=== PATIENT | male | born 1980 | race Caucasian/White ===

== ENCOUNTER 2020-10-17 15:32 | Inpatient (IN) | payer OTHER ==
[2020-10-17 16:25] VITALS: BMI 23.1
[2020-10-17] MEDS ORDERED: IBUPROFEN 400 MG TABLET (FP) PO PRN (17:55)
[2020-10-17] MEDS ORDERED: NICOTINE POLACRILEX 2 MG GUM BUC PRN (17:55)
[2020-10-17] MEDS ORDERED: MAGNESIUM CITRATE 300 ML BOTTLE PO PRN (17:55)
[2020-10-17] MEDS ORDERED: MENTHOL/PHENOL 1 EACH UD MM PRN (17:55)
[2020-10-17] MEDS ORDERED: MAGNESIUM HYDROX 2400MG/30ML ORAL SUSPENSION 30 ML CUP PO PRN (17:55)
[2020-10-17] MEDS ORDERED: METHADONE HCL 10 MG TABLET (FOR DETOX USE ONLY) PO ONE (17:57)
[2020-10-17] MEDS ORDERED: cloNIDine HCL 0.1 MG TABLET PO PRN (17:57)
[2020-10-17] MEDS ORDERED: TRIMETHOBENZAMIDE HCL 200MG/2ML INJ IM ONE (17:58)
[2020-10-17] MEDS: chlordiazePOXIDE HCL 25 MG CAPSULE PO SCH (22:19)
[2020-10-17] MEDS: MELATONIN 5 MG TABLETS PO SCH (22:19)
[2020-10-17] MEDS: THIAMINE HCL 100 MG TABLET (FP) PO SCH (22:19)
[2020-10-18] MEDS: chlordiazePOXIDE HCL 25 MG CAPSULE PO PRN ×2 (03:16→12:58)
[2020-10-18] MEDS: chlordiazePOXIDE HCL 25 MG CAPSULE PO SCH ×4 (05:40→22:15)
[2020-10-18] MEDS ORDERED: METHADONE HCL 5 MG TABLET (FOR DETOX USE ONLY) ONE (09:17)
[2020-10-18] MEDS ORDERED: METHADONE HCL 10 MG TABLET (FOR DETOX USE ONLY) ONE (09:18)
[2020-10-18] MEDS ORDERED: TRIMETHOBENZAMIDE HCL 200MG/2ML INJ IM PRN (09:55)
[2020-10-18] MEDS ORDERED: DICYCLOMINE HCL 10 MG CAPSULE PO ONE (09:56)
[2020-10-18] MEDS ORDERED: METHADONE (DETOX) 20 MG, METHADONE (DETOX) 5 MG PO ONE (10:00)
[2020-10-18] MEDS ORDERED: cloNIDine HCL 0.1 MG TABLET PO PRN (10:19)
[2020-10-18] MEDS: PRENATAL VITAMINS W/ FOLIC ACID TABLET (FP) PO SCH (10:32)
[2020-10-18 11:29] LABS: HEMATOCRIT 39.1 % (35.4-49); HEMOGLOBIN 13.3 GM/dL (11.7-16.9); MCH 32.8 pg (25.7-33.7); MCHC 34.1 g/dl (32.0-35.9); MEAN CELL VOLUME 96.1 fl (80-96); MEAN PLT VOLUME 7.5 fl (7.5-11.1); PLATELET COUNT 234 K/MM3 (134-434); RBC 4.07 M/mm3 (4.00-5.60); RDW 14.4 % (11.9-15.9); WHITE BLOOD COUNT 4.1 K/mm3 (4.0-10.0)
[2020-10-18 11:42] LABS: CALCIUM 9.2 mg/dL (8.5-10.1)
[2020-10-18 11:43] LABS: BLOOD UREA NITROGEN 13.8 mg/dL (7-18)
[2020-10-18 11:46] LABS: CREATININE 0.8 mg/dL (0.55-1.3)
[2020-10-18 11:47] LABS: BILIRUBIN,TOTAL 0.7 mg/dL (0.2-1); TOT PROT 7.4 g/dl (6.4-8.2)
[2020-10-18] MEDS: ONDANSETRON *ODT* 4 MG TABLET SL PRN (12:59)
[2020-10-18] MEDS: ACETAMINOPHEN 325 MG TABLET (FP) PO PRN ×2 (13:00→17:42)
[2020-10-18] MEDS: QUEtiapine FUMARATE 100 MG TABLET (FP) PO SCH (22:14)
[2020-10-18] MEDS: THIAMINE HCL 100 MG TABLET (FP) PO SCH (22:14)
[2020-10-18] MEDS: MELATONIN 5 MG TABLETS PO SCH (22:15)
[2020-10-19] MEDS: ACETAMINOPHEN 325 MG TABLET (FP) PO PRN ×3 (04:14→10:18)
[2020-10-19] MEDS: chlordiazePOXIDE HCL 25 MG CAPSULE PO SCH ×4 (05:48→22:19)
[2020-10-19] MEDS ORDERED: METHADONE HCL 10 MG TABLET (FOR DETOX USE ONLY) PO ONE (10:00)
[2020-10-19] MEDS: PRENATAL VITAMINS W/ FOLIC ACID TABLET (FP) PO SCH (10:15)
[2020-10-19] MEDS: QUEtiapine FUMARATE 100 MG TABLET (FP) PO SCH (22:18)
[2020-10-19] MEDS: THIAMINE HCL 100 MG TABLET (FP) PO SCH (22:18)
[2020-10-19] MEDS: MELATONIN 5 MG TABLETS PO SCH (22:18)
[2020-10-19] MEDS: hydrOXYzine PAMOATE 50 MG CAPSULE (FP) PO PRN (22:21)
[2020-10-20] MEDS ORDERED: chlordiazePOXIDE HCL 10 MG CAPSULE PO PRN
[2020-10-20] MEDS: ACETAMINOPHEN 325 MG TABLET (FP) PO PRN (03:08)
[2020-10-20] MEDS: METHOCARBAMOL 500 MG TABLET PO PRN (05:46)
[2020-10-20] MEDS: chlordiazePOXIDE HCL 10 MG CAPSULE PO SCH ×4 (05:46→22:17)
[2020-10-20] MEDS ORDERED: METHADONE HCL 5 MG TABLET (FOR DETOX USE ONLY) ONE (09:18)
[2020-10-20] MEDS ORDERED: METHADONE HCL 10 MG TABLET (FOR DETOX USE ONLY) ONE (09:19)
[2020-10-20] MEDS ORDERED: METHADONE (DETOX) 10 MG, METHADONE (DETOX) 5 MG PO ONE (10:00)
[2020-10-20 10:08] LABS: SARS-CoV-2 NAA Not Detected (Not Detected)
[2020-10-20] MEDS: MAG HYDROX/AL HYDROX/SIMETH 30 ML UNIT-DOSE CUP PO PRN ×2 (10:16→22:18)
[2020-10-20] MEDS: PRENATAL VITAMINS W/ FOLIC ACID TABLET (FP) PO SCH (10:17)
[2020-10-20] MEDS: hydrOXYzine PAMOATE 50 MG CAPSULE (FP) PO PRN (13:42)
[2020-10-20] MEDS: MELATONIN 5 MG TABLETS PO SCH (22:17)
[2020-10-20] MEDS: QUEtiapine FUMARATE 100 MG TABLET (FP) PO SCH (22:17)
[2020-10-20] MEDS: THIAMINE HCL 100 MG TABLET (FP) PO SCH (22:17)
[2020-10-21] MEDS: MAG HYDROX/AL HYDROX/SIMETH 30 ML UNIT-DOSE CUP PO PRN ×2 (04:04→22:23)
[2020-10-21] MEDS: chlordiazePOXIDE HCL 10 MG CAPSULE PO SCH ×2 (06:20→17:57)
[2020-10-21] MEDS: BISMUTH SUBSALICYLATE 524 MG/30 ML UD PO PRN ×2 (07:28→12:37)
[2020-10-21] MEDS ORDERED: METHADONE HCL 10 MG TABLET (FOR DETOX USE ONLY) PO ONE (10:00)
[2020-10-21] MEDS: hydrOXYzine PAMOATE 50 MG CAPSULE (FP) PO PRN ×3 (10:10→22:02)
[2020-10-21] MEDS: PRENATAL VITAMINS W/ FOLIC ACID TABLET (FP) PO SCH (10:11)
[2020-10-21] MEDS: ACETAMINOPHEN 325 MG TABLET (FP) PO PRN (14:20)
[2020-10-21] MEDS: METHOCARBAMOL 500 MG TABLET PO PRN ×2 (14:20→22:02)
[2020-10-21] MEDS: THIAMINE HCL 100 MG TABLET (FP) PO SCH (22:02)
[2020-10-21] MEDS: QUEtiapine FUMARATE 100 MG TABLET (FP) PO SCH (22:02)
[2020-10-21] MEDS: MELATONIN 5 MG TABLETS PO SCH (22:02)
[2020-10-22] MEDS: BISMUTH SUBSALICYLATE 524 MG/30 ML UD PO PRN (02:04)
[2020-10-22] MEDS ORDERED: chlordiazePOXIDE HCL 10 MG CAPSULE PO ONE (05:00)
[2020-10-22] MEDS ORDERED: METHADONE HCL 5 MG TABLET (FOR DETOX USE ONLY) PO ONE (06:00)
[2020-10-22] MEDS: MAG HYDROX/AL HYDROX/SIMETH 30 ML UNIT-DOSE CUP PO PRN (06:04)
[2020-10-22] MEDS: ONDANSETRON *ODT* 4 MG TABLET SL PRN (08:21)
[2020-10-22 09:50] VITALS: BP 124/78; PULSE 64; TEMP 96.9
== END 2020-10-22 10:45 | disposition home or self-care (01) | DRG 773 ==
LOC: YASAS 15:32 → Y6N 19:20
PROVIDERS: ADMIT Allergy & Immunology; ATTEND Allergy & Immunology
PROC: HZ2ZZZZ Detoxification Services for Substance Abuse Treatment (ICD-10-PCS; principal; 2020-10-17)
DX: F11.23 Opioid dependence with withdrawal (principal); F10.230 Alcohol dependence with withdrawal, uncomplicated; F12.20 Cannabis dependence, uncomplicated; F17.210 Nicotine dependence, cigarettes, uncomplicated; F25.9 Schizoaffective disorder, unspecified; F31.9 Bipolar disorder, unspecified; F19.282 Other psychoactive substance dependence with psychoactive substance-induced sleep disorder; F19.24 Other psychoactive substance dependence with psychoactive substance-induced mood disorder; F90.9 Attention-deficit hyperactivity disorder, unspecified type; G40.89 Other seizures; R74.01 Elevation of levels of liver transaminase levels; Z88.0 Allergy status to penicillin; Z59.0 Homelessness; Z56.0 Unemployment, unspecified
CPT/HCPCS: 36415; 80053; 85027; 86780; C9803; Q0162; U0003; U0005